=== PATIENT | female | born 1940 | race Caucasian/White ===

== ENCOUNTER 2017-02-13 07:56 | Inpatient (IN) | payer OTHER ==
[2017-01-17 12:34] VITALS: BMI 28.0
--- NOTE | 2017-01-17 12:58 | PAT Medication Instructions ---
Service Date Jan 17, 2017. Current Home Medication List Adalimumab (Humira), 1 DOSE INJ 2XWK Atorvastatin (Lipitor), 40 MG PO QPM Calcium/Vitamin D (Os-Perez 500 Plus D), 1 TAB PO QAM Chlorthalidone (Hygroton), 25 MG PO QAM Cholecalciferol (Vitamin D), 1 TAB PO QAM Coenzyme Q10 (Ubidecarenone) (Co Q10), 1 CAP PO QAM Cyanocobalamin (Vitamin B12 100 Mcg), 100 MCG PO QAM Dicyclomine Hcl (Dicyclomine Hcl), 1 TAB PO TIDM Diphenhydramine Hcl (Benadryl Allergy), 1 CAP PO UD PRN for ALLERGIC REACTION Duloxetine Hcl (Cymbalta), 60 MG PO HS Epinephrine (Epipen), 0.3 MG IM UD Epinephrine (Epipen), 0.3 MG IM UD PRN for ALLERGIC REACTION Famotidine (Pepcid), 40 MG PO HS Folic Acid (Folvite), 1 MG PO QAM Hydroxychloroquine Sulfate (Plaquenil), 200 MG PO BID Krill Oil ([facility] [place]-3 Krill Oil 300 300 mg), 1 CAP PO QAM Loratadine (Loratadine), 1 CAP PO QAM Metformin Hcl (Glucophage), 500 MG PO QAM Multivitamin (Multivitamin), 1 TAB PO QAM Pantoprazole (Protonix), 40 MG PO BID Sennosides-Docusate Sodium (Stool Softener), 1 TAB PO DAILY PRN for Constipation Tramadol (Ultram), 50 MG PO Q8H PRN for Pain Valsartan (Diovan), 80 MG PO QAM [Allergy Injection], 1 DOSE INJ UD Medication Instructions For Your Scheduled Surgery - Check with surgeon/prescribing physician for instructions: [Allergy Injection], 1 DOSE INJ UD Adalimumab (Humira), 1 DOSE INJ 2XWK Hydroxychloroquine Sulfate (Plaquenil), 200 MG PO BID - Hold the following medications 2 weeks prior to surgery: Krill Oil ([facility] [place]-3 Krill Oil 300 300 mg), 1 CAP PO QAM Coenzyme Q10 (Ubidecarenone) (Co Q10), 1 CAP PO QAM - Hold the following medications 48 hours prior to surgery: Metformin Hcl (Glucophage), 500 MG PO QAM - Hold the following medications the morning of surgery: Valsartan (Diovan), 80 MG PO QAM Sennosides-Docusate Sodium (Stool Softener), 1 TAB PO DAILY PRN for Constipation Multivitamin (Multivitamin), 1 TAB PO QAM Loratadine (Loratadine), 1 CAP PO QAM Folic Acid (Folvite), 1 MG PO QAM Dicyclomine Hcl (Dicyclomine Hcl), 1 TAB PO TIDM Cyanocobalamin (Vitamin B12 100 Mcg), 100 MCG PO QAM Calcium/Vitamin D (Os-Perez 500 Plus D), 1 TAB PO QAM Chlorthalidone (Hygroton), 25 MG PO QAM Cholecalciferol (Vitamin D), 1 TAB PO QAM - Take the following medications the morning of surgery with a sip of water: Tramadol (Ultram), 50 MG PO Q8H PRN for Pain (okay to take up to 4 hours prior to surgery if needed) Pantoprazole (Protonix), 40 MG PO BID Epinephrine (Epipen), 0.3 MG IM UD PRN for ALLERGIC REACTION (if needed) Diphenhydramine Hcl (Benadryl Allergy), 1 CAP PO UD PRN for ALLERGIC REACTION ( if needed) - Take the following medications as scheduled the night before surgery: Tramadol (Ultram), 50 MG PO Q8H PRN for Pain (if needed) Pantoprazole (Protonix), 40 MG PO BID Epinephrine (Epipen), 0.3 MG IM UD PRN for ALLERGIC REACTION (if needed) Famotidine (Pepcid), 40 MG PO HS Dicyclomine Hcl (Dicyclomine Hcl), 1 TAB PO TIDM Diphenhydramine Hcl (Benadryl Allergy), 1 CAP PO UD PRN for ALLERGIC REACTION ( if needed) Duloxetine Hcl (Cymbalta), 60 MG PO HS Atorvastatin (Lipitor), 40 MG PO QPM If you have any questions please call us at [phone] or [phone] or [phone]
--- NOTE | 2017-01-17 13:58 | DIAGNOSTIC IMAGING REPORT ---
CHEST PREADMISSION(PA/LAT) CLINICAL HISTORY: Preoperative evaluation. COMPARISON STUDY: No previous studies for comparison. FINDINGS: Lung volumes are normal. Lungs are clear. No pneumothorax or pleural effusion is present. Pulmonary vascularity is normal. Mild to moderate cardiomegaly is noted. Right upper quadrant surgical clips are present. IMPRESSION: 1. No acute cardiopulmonary findings. 2. Mild to moderate cardiomegaly. Electronically signed by: Garfield Jessica M.D. 01/17/2017 1:57 PM Dictated Date/Time: 01/17/2017 1:56 PM
[2017-01-17 14:16] LABS: BASO % 0.5 %; BASO ABS # 0.05 K/uL (0-0.2); COMPLETE YES; EOS % 0.5 %; HEMATOCRIT 42.6 % (37-47); IG% 0.2 %; LYMPH % 26.4 %; LYMPH ABS # 2.57 K/uL (1.2-3.4); MEAN CELL VOLUME 86.2 fL (80-100); MEAN CORPUSCULAR HEMOGLOBIN 28.7 pg (25-34); MEAN CORPUSCULAR HGB CONC 33.3 g/dl (32-36); MEAN PLATELET VOLUME 9.9 fL (7.4-10.4); MONO % 6.3 %; NEUT % 66.1 %; PLATELET COUNT 241 K/uL (130-400); RED BLOOD COUNT 4.94 M/uL (4.2-5.4); WHITE BLOOD COUNT 9.73 K/uL (4.8-10.8)
[2017-01-17 14:21] LABS: URINE APPEARANCE CLEAR (CLEAR); URINE BILIRUBIN NEG (NEG); URINE COLOR YELLOW; URINE EPITHELIAL CELL AUTO 0-5 /lpf (0-5); URINE NITRITE NEG (NEG); URINE SPECIFIC GRAVITY 1.022 (1.000-1.030); UROBILINOGEN NEG (NEG)
[2017-01-17 14:28] LABS: MANUAL MICROSCOPIC REQUIRED? NO; REVIEW REQ? NO
[2017-01-17 14:31] LABS: INR 0.9 (0.9-1.1); PARTIAL THROMBOPLASTIN RATIO 0.9
[2017-01-17 15:10] LABS: BUN/CREATININE RATIO 16.6 (10-20); CALCIUM 9.8 mg/dl (8.5-10.1); CREATININE 0.91 mg/dl (0.60-1.20); POTASSIUM 3.9 mmol/L (3.5-5.1)
[~2017-02-13] VITALS: Ht 165.1 cm; Wt 77.0 kg
[2017-02-13] VITALS (8 sets, daily range): BP systolic 113–195; BP diastolic 61–80; PULSE 78–87; TEMP 36.6–37.1; O2SAT 93–98
[~2017-02-13 07:56] MED LIST: ADAL1KIT INJ; ALLERGY INJECTION INJ; ATOR-24 PO; CALC500C70 PO; CEFAZOLIN 1000MG/55 ML D5W IV SCH; CHOL400T PO; COEN1CAP28 PO; CYAN100T6 PO; DICY20TA10 PO; DIPH25CA65 PO; DULO60CA44 PO; DVN80 PO; EPP3/2 IM; FAMO40TA6 PO; FOLI1TAB7 PO; GLC/500 PO; HYDR200T5 PO; HYG/25 PO; KRIL1CAP20 PO; LACTATED RINGER'S 1000ML 1,000 ML IV SCH; LORA10CA10 PO; MULT-506 PO; PANT40TA PO; SENNTAB23 PO; TRAM-10 PO
[2017-02-13] MEDS ORDERED: ONDANSETRON INJ 2 MG/ML 2 ML VIAL IV PRN ×2 (08:15→12:15)
[2017-02-13] MEDS ORDERED: HYDROmorphone INJ 1 MG/ML SYR IV PRN (08:15)
[2017-02-13] MEDS ORDERED: EpHEDrine SULFATE INJ 50 MG/ML AMP IV PRN (08:15)
[2017-02-13] MEDS ORDERED: ATROPINE SULFATE 0.1 MG/ML 5ML SYR IV PRN (08:15)
[2017-02-13] MEDS ORDERED: FENTANYL CITRATE INJ 50 MCG/1 ML 2 ML VIAL ONE ×2 (09:40→10:53)
[2017-02-13] MEDS ORDERED: MIDAZOLAM HCL 1 MG/ML 2ML VIAL ONE (09:40)
--- NOTE | 2017-02-13 09:45 | History & Physical Bridge Note ---
H&P Re-Evaluation Bridge Note: I have examined the patient, reviewed the History & Physical and in the interval since the performance of the History & Physical I have noted the following changes of clinical significance: No changes noted
--- NOTE | 2017-02-13 09:46 | History and Physical ---
History & Physical Date Feb 13, 2017. Chief Complaint Back and leg pain History of Present Illness The patient is a 76 year old female with complaints of back and leg pain Additional History Hepatic Disease: No Endocrine Disorder: No Kidney Disease: No Hypertension: No Heart Disease: No Bleeding Tendencies: No Infectious Diseases: No Allergies Coded Allergies: Benzyl Alcohol (Verified Allergy, Unknown, ANAPHYLAXIS, 02/13/17) Bisoprolol (Verified Allergy, Unknown, COUGH, 02/13/17) Cat Dander (Verified Allergy, Unknown, ANAPHYLAXIS, 02/13/17) Cephalexin (Verified Allergy, Unknown, PT UNSURE OF RXN, 02/13/17) Codfish (Verified Allergy, Unknown, TESTED POSITIVE FOR ALLERGY, 02/13/17) Elm Tree (Verified Allergy, Unknown, "ALL TREE", HAYFEVER, 02/13/17) Etanercept (Verified Allergy, Unknown, ANAPHYLAXIS, 02/13/17) Grass (Verified Allergy, Unknown, HAYFEVER, 02/13/17) Lisinopril (Verified Allergy, Unknown, COUGH, 02/13/17) Molds and Smuts (Verified Allergy, Unknown, HAY FEVER, 02/13/17) Niacin (Verified Allergy, Unknown, HOT FLASHES, 02/13/17) Tromethamine (Verified Allergy, Unknown, ANAPHYLAXIS, 02/13/17) Zoledronic Acid (Verified Allergy, Unknown, ANAPHYLAXIS, 02/13/17) Uncoded Allergies: TURKEY (Allergy, Unknown, PT DOES NOT TOLERATE, 01/17/17) Home Medications Scheduled Adalimumab (Humira), 1 DOSE INJ 2XWK Atorvastatin (Lipitor), 40 MG PO QPM Calcium/Vitamin D (Os-Perez 500 Plus D), 1 TAB PO QAM Chlorthalidone (Hygroton), 25 MG PO QAM Cholecalciferol (Vitamin D), 1 TAB PO QAM Coenzyme Q10 (Ubidecarenone) (Co Q10), 1 CAP PO QAM Cyanocobalamin (Vitamin B12 100 Mcg), 100 MCG PO QAM Dicyclomine Hcl (Dicyclomine Hcl), 1 TAB PO TIDM Duloxetine Hcl (Cymbalta), 60 MG PO HS Epinephrine (Epipen), 0.3 MG IM UD Famotidine (Pepcid), 40 MG PO HS Folic Acid (Folvite), 1 MG PO QAM Hydroxychloroquine Sulfate (Plaquenil), 200 MG PO BID Krill Oil ([facility] [place]-3 Krill Oil 300 300 mg), 1 CAP PO QAM Loratadine (Loratadine), 1 CAP PO QAM Metformin Hcl (Glucophage), 500 MG PO QAM Multivitamin (Multivitamin), 1 TAB PO QAM Pantoprazole (Protonix), 40 MG PO BID Valsartan (Diovan), 80 MG PO QAM [Allergy Injection], 1 DOSE INJ UD Scheduled PRN Diphenhydramine Hcl (Benadryl Allergy), 1 CAP PO UD PRN for ALLERGIC REACTION Sennosides-Docusate Sodium (Stool Softener), 1 TAB PO DAILY PRN for Constipation Tramadol (Ultram), 50 MG PO Q8H PRN for Pain Physical Examination Skin: warm/dry, no rash Eyes: normal inspection, EOMI, sclerae normal ENT: normal ENT inspection, pharynx normal Head: normocephalic, atraumatic Neck: supple, no adenopathy, trachea midline Respiratory/Chest: lungs clear, normal breath sounds, no respiratory distress Cardiovascular: regular rate, rhythm, no edema, no murmur Abdomen / GI: normal bowel sounds, non tender Back: normal inspection Extremities: normal inspection, normal range of motion Neurologic/Psych: no motor/sensory deficits, alert, normal reflexes, oriented x 3 Diagnosis Lumbar spinal stenosis with spondylolisthesis Plan of Treatment Lumbar decompression fusion L4 5
[2017-02-13] MEDS ORDERED: BUPIVACAINE/EPINEPHRINE 0.5% MPF 1:200,000 30 ML VIAL ONE (10:10)
[2017-02-13] MEDS ORDERED: BACITRACIN 50000 UNIT VIAL ONE (10:10)
[2017-02-13] MEDS ORDERED: CLINDAMYCIN 600 MG/54 ML D5W IV ONE (10:27)
[2017-02-13] MEDS ORDERED: NURSING VERBAL MED ORDER ONE ×2 (10:45→20:45)
[2017-02-13] MEDS ORDERED: HYDROmorphone INJ 2 MG/ML SYR/VIAL ONE ×2 (10:53→12:09)
[2017-02-13] MEDS ORDERED: FLOSEAL HEMOSTATIC MATRIX 10ML TOP ONE (11:59)
[2017-02-13] MEDS ORDERED: PHENYLEPHRINE 100MCG/ML 5ML SYR ONE (12:07)
[2017-02-13] MEDS ORDERED: ONDANSETRON INJ 2 MG/ML 2 ML VIAL ONE ×2 (12:07→12:09)
[2017-02-13] MEDS ORDERED: EpHEDrine SULFATE 50MG/5ML SYR ONE (12:07)
[2017-02-13] MEDS ORDERED: LIDOCAINE HCL 2% 2 ML VIAL (20MG/ML) ONE (12:07)
[2017-02-13] MEDS ORDERED: ROCURONIUM BROMIDE 10 MG/ML 5 ML VIAL IV ONE (12:07)
[2017-02-13] MEDS ORDERED: PROPOFOL IV EMULSION 10 MG/ML 20 ML VIAL IV ONE (12:07)
[2017-02-13] MEDS ORDERED: DEXAMETHASONE SOD INJ 4 MG/ML VIAL ONE (12:07)
[2017-02-13] MEDS ORDERED: NEOSTIGMINE METHYLSULFATE 1 MG/ML 10ML VIAL ONE (12:09)
[2017-02-13] MEDS ORDERED: KETOROLAC TROMETHAMINE 30 MG/ML VIAL ONE (12:09)
[2017-02-13] MEDS ORDERED: GLYCOPYRROLATE INJ 0.2 MG/ML VIAL ONE (12:09)
--- NOTE | 2017-02-13 12:14 | DIAGNOSTIC IMAGING REPORT ---
LUMBAR SPINE, INTRAOPERATIVE FLUOROSCOPY HISTORY: L4-L5 decompression and fusion. FLUOROSCOPY TIME: 12 seconds. FINDINGS: Intraoperative fluoroscopy was provided for the lumbar spine. 2 fluoroscopic spot images were obtained. Posterior decompression fusion at L4-L5 with pedicle screws and rods. The hardware appears intact. IMPRESSION: Fluoroscopy provided for a L4-5 posterior decompression and fusion. Electronically signed by: Luis A Guerra M.D. 02/13/2017 12:13 PM Dictated Date/Time: 02/13/2017 12:12 PM
[2017-02-13] MEDS ORDERED: hydrOXYzine HCL 25 MG TAB PO PRN (12:15)
[2017-02-13] MEDS ORDERED: SODIUM CHLORIDE 0.9% 1000ML 1,000 ML IV SCH (12:15)
[2017-02-13] MEDS ORDERED: HYDROmorphone HCL 0.5MG/ML 50 ML CASSETTE IV PRN (12:15)
[2017-02-13] MEDS ORDERED: ALUMINUM/MAGNESIUM SUSP 30 ML UDC PO PRN (12:15)
[2017-02-13] MEDS ORDERED: SOD PHOSPHATE/SOD BIPHOSPHATE ENEMA 132 ML BTL PR PRN (12:15)
[2017-02-13] MEDS ORDERED: BISACODYL 10 MG SUPP PR PRN (12:15)
[2017-02-13] MEDS ORDERED: LORAZEPAM INJ 0.5 MG in SYRINGE 0.75 ML IV PRN (12:15)
[2017-02-13] MEDS ORDERED: NALOXONE HCL 0.4 MG/1 ML VIAL/CARP IV PRN ×2 (12:15)
[2017-02-13] MEDS ORDERED: LORAZEPAM 0.5 MG TAB PO PRN (12:15)
[2017-02-13] MEDS ORDERED: PROMETHAZINE HCL INJ 12.5 MG in SODIUM CHLORIDE 0.9% 50ML 50 ML IV PRN (12:15)
[2017-02-13] MEDS ORDERED: ACETAMINOPHEN IV 100 ML IV PRN (12:15)
[2017-02-13] MEDS ORDERED: FAMOTIDINE 20 MG TAB PO PRN (12:15)
[2017-02-13] MEDS ORDERED: METOCLOPRAMIDE HCL INJ 5 MG/ML 2 ML VIAL IV PRN (12:15)
[2017-02-13] MEDS ORDERED: MAGNESIUM HYDROXIDE SUSP 30 ML UDC PO PRN (12:15)
[2017-02-13] MEDS ORDERED: DO NOT ADMINISTER PNEUMOCOCCAL VACCINE PRN ×2 (12:15)
[2017-02-13] MEDS ORDERED: DO NOT ADMINISTER FLU VACCINE PRN ×3 (12:15)
[2017-02-13] MEDS: FENTANYL CITRATE INJ 50 MCG/1 ML 2 ML VIAL IV PRN ×4 (12:32→12:47)
--- NOTE | 2017-02-13 12:35 | [facility] Operative Report ---
Operative Report Operative Date Feb 13, 2017. Pre-Operative Diagnosis SPINAL STENOSIS Post-Operative Diagnosis SAME PREOP Procedure(s) Performed #1 lumbar decompression medial facetectomy foraminotomies L3 4 L4 5. #2 posterior spinal fusion L4 5. #3 placement posterior inch rotation L4 5. #4 interbody fusion L4 5. #5 placement peek cage 12 x 22 mm at L4 5. #6 placement of local harvested morcellized autograft posterior lateral gutters. #7 placement of ostial amp in the interbody space and posterior lateral gutters. Surgeon DR. Ruben SMITH Narrow Gauge Brakeman Surgeon(s) Levon BUSCH PAC Estimated Blood Loss 125ml Findings Severe spinal stenosis with spondylolisthesis Specimens NONE Description of Procedure Patient was met with preoperatively case discussed all questions are dressed. After informed consent the patient patient was taken back to the operative suite after undergoing general intubation E procedures placed in a prone position on the Harrison table top Emanuel frame. All bony prominences were well- padded and the eyes were inspected to ensure there is no external pressure placed upon them. This point the lumbar spine is prepped and draped nostril fashion. Sharp dissection with the assistance of Bovie cautery was performed onto an exposing the lamina and transverse processes of L4 5 bilaterally. From a caudal to cephalad fashion a complete laminectomy of L4 partial laminectomy of L3 was performed addressing severe lateral recess and foraminal stenosis. After this is complete pedicle screws were placed in L4 5 bilaterally assistance of fluoroscopy in the purposes kodi placed. Through a transforaminal approach on the left we discectomy of L4 5 was performed and plate created to subcortical bleeding bone and a 12 x 22 mm peek cage filled with ostial amp tapped in position. The rods were then compressed locked and final position bilaterally. Transverse processes of L4 5 burred to subcortical bleeding bone. The remaining ostial amp local harvested autograft placed and posterior gutters. 15 round SAUL drain inserted. Incision closed with 1 Vicryl fascia 2-0 Vicryl subcutaneous tediously 4 Monocryl for final skin closure Steri-Strip sterile dressing placed. Patient we can take PACU stable condition. Please note Naomi Jack was present throughout the entire procedure involved in patient positioning complex portions of the surgery and final skin closure. I attest to the content of the Intraoperative Record and any orders documented therein. Any exceptions are noted below.
[2017-02-13] MEDS ORDERED: HYDROmorphone HCL 0.5MG/ML 50 ML CASSETTE ONE (12:56)
--- NOTE | 2017-02-13 13:01 | Anesthesiology Progress Note ---
Anesthesia Post Op Note Date & Time Feb 13, 2017 at 13:01 Vital Signs Pain Intensity: 3 Vital Signs Past 12 Hours Date Time Temp Pulse Resp B/P (MAP) Pulse Ox O2 Delivery O2 Flow Rate FiO2 02/13/17 12:20 36.4 95 16 185/112 96 Oxymask 10 02/13/17 09:05 37.1 79 20 195/80 96 Room Air Notes Mental Status: alert / awake / arousable, participated in evaluation Pt Amnestic to Procedure: Yes Nausea / Vomiting: adequately controlled Pain: adequately controlled Airway Patency, RR, SpO2: stable & adequate BP & HR: stable & adequate Hydration State: stable & adequate Anesthetic Complications: no major complications apparent
[2017-02-13] MEDS ORDERED: ESMOLOL HCL 10 MG/ML 10 ML VIAL ONE (13:04)
[2017-02-13] MEDS ORDERED: PHARMACY GLYCEMIC MGMT CONSULT PRN (13:48)
[2017-02-13] MEDS ORDERED: DEXTROSE 50% 50 ML SYR IV PRN (14:00)
[2017-02-13] MEDS ORDERED: GLUCAGON FOR INJ 1 MG VIAL SQ PRN (14:00)
[2017-02-13] MEDS ORDERED: GLUCOSE 10 TABS/TUBE PO PRN (14:00)
[2017-02-13] MEDS ORDERED: GLUCOSE 40% GEL 15 GM TUBE PO PRN (14:00)
[2017-02-13] MEDS: SODIUM CHLORIDE 0.9% 1000ML 1,000 ML IV SCH ×2 (14:20→19:23)
--- NOTE | 2017-02-13 14:31 | Pharmacy Progress Note ---
Glycemic Control Intl Consult Date of Service Feb 13, 2017. Scope Glycemic Pharmacist consulted by Dr Sauer on 02/13/17 for glycemic control and to write orders per [facility] inpatient glycemic control protocol Objective Weight (Kilograms): 77.400 Accuchecks BSG (last 24hrs): Test 02/13/17 08:42 02/13/17 12:27 Bedside Glucose 99 mg/dl (70-90) 140 mg/dl (70-90) Recent Pertinent Medications Outpatient Anti-diabetic Regimen: * Metformin 500mg PO QAM {last dose 02/10} Risk Factors for Insulin Resistance: * Steroids * Recent Surgery * Diet Assessment & Plan ASSESSMENT: * 76yo T2DM female with unknown degree of outpatient control. * No recent A1c in chart * Pt is maintained on oral antidiabetic agents as an outpatient * Oral agents are not recommended for inpatient use d/t drug interactions, changing PO intake, and difficulty titrating for acute hyper/hypoglycemia. ADA recommends re-initiating outpatient oral agents 1-2 days prior to discharge if/ when appropriate if they were held on admission. * Will hold oral agents for admission and utilize SQ basal bolus insulin regimen which is the recommended regimen for inpatient glycemic control. * Will initiate weight based insulin dosing for insulin berta patient and titrate based on BSG trends. * POD#0: Start with severe stress & weight based dosing for post op and high dose IV steroids * POD#1: taper to moderate stress & weight based dosing * POD#2: d/c insulin, resume metformin, prep for discharge * ADA & AACE recommend a goal blood sugar range 140-180 mg/dl for the majority of critically ill & non-critically ill patients. However, more stringent targets may be selected in individual cases. Will utilize more stringent goal of 110-140mg/dl based on patient age & comorbidities. Additionally, tighter glycemic control is warranted to facilitate wound/infection healing. PLAN FOR INPATIENT GLYCEMIC CONTROL: * Holding outpatient oral diabetes medications * Basal insulin * POD# 0: Lantus 40 units SQ x 1 * POD# 1 AM: Lantus 0, 7, or 13 units in AM based on BSG/degree of hyperglycemia * POD# 1 HS: Lantus 0, 7 units based on BSG/degree of hyperglycemia * POD# 2 AM: D/C Lantus * Bolus insulin * NovoLog per scale ACHS or Q6hrs while NPO. Additional checks/coverage tonight at 0000, 0400 for RTC steroid dosing/hyperglycemia * Goal Range: Low 110 mg/dL - High 140 mg/dL * Correction Factor: 20 mg/dL/unit --> will taper to 30 after last dose of dxm * Nutritional / Prandial insulin per carb ratio of 1 unit per 7 grams CHO consumed --> will taper to 10 after last dose of dxm & d/c when metformin resumed * Please note that the plan above was derived based on current level of insulin resistance and hospital stress. These recommendations are appropriate for inpatient admission only. Plan of care upon discharge will need to be reassessed to avoid potential outpatient hypo/hyperglycemia. Thank you.
--- NOTE | 2017-02-13 15:04 | Medical Consult ---
Consultation Date of Consultation: Feb 13, 2017. Attending Physician: Glenn Sauer D.O. Reason for Consultation: medical management History of Present Illness 76 year old F with PMH of food and drug allergies and the following: Osteoarthritis Psoriatic arthritis Rectocele Fibromyalgia Irritable bowel syndrome Overactive bladder Osteoporosis GERD Hyperlipidemia Essential HTN Allergic Rhinitis Shingles (September 2016) Pre-diabetic Home medications reviewed and significant for blood pressure control (Valsartan , Chlorthalidone 12.5 mg daily), cholesterol (lipitor 40 mg), pre-diabetes ( metformin), psoriatic arthritis (humira 40 mg bi weekly injections, ( hydroxychloroquine), medications for allergies for appetite and vitamins s/p #1 lumbar decompression medial facetectomy foraminotomies L3 4 L4 5. #2 posterior spinal fusion L4 5. #3 placement posterior inch rotation L4 5. #4 interbody fusion L4 5. #5 placement peek cage 12 x 22 mm at L4 5. #6 placement of local harvested morcellized autograft posterior lateral gutters. # 7 placement of ostial amp in the interbody space and posterior lateral gutters. Social History Smoking Status: Never Smoker Allergies Coded Allergies: Benzyl Alcohol (Verified Allergy, Unknown, ANAPHYLAXIS, 02/13/17) Bisoprolol (Verified Allergy, Unknown, COUGH, 02/13/17) Cat Dander (Verified Allergy, Unknown, ANAPHYLAXIS, 02/13/17) Cephalexin (Verified Allergy, Unknown, PT UNSURE OF RXN, 02/13/17) Codfish (Verified Allergy, Unknown, TESTED POSITIVE FOR ALLERGY, 02/13/17) Elm Tree (Verified Allergy, Unknown, "ALL TREE", HAYFEVER, 02/13/17) Etanercept (Verified Allergy, Unknown, ANAPHYLAXIS, 02/13/17) Grass (Verified Allergy, Unknown, HAYFEVER, 02/13/17) Lisinopril (Verified Allergy, Unknown, COUGH, 02/13/17) Molds and Smuts (Verified Allergy, Unknown, HAY FEVER, 02/13/17) Niacin (Verified Allergy, Unknown, HOT FLASHES, 02/13/17) Tromethamine (Verified Allergy, Unknown, ANAPHYLAXIS, 02/13/17) Zoledronic Acid (Verified Allergy, Unknown, ANAPHYLAXIS, 02/13/17) Uncoded Allergies: TURKEY (Allergy, Unknown, PT DOES NOT TOLERATE, 01/17/17) Home Medications Reported Home Medications Medications Dose Route/Sig Max Daily Dose Days Date Category [facility]-3 Krill Oil 300 300 mg (Krill Oil) 1 Cap Cap 1 Cap PO QAM 01/17/17 Reported Os-Perez 500 Plus D (Calcium/Vitamin D) Tab 1 Tab PO QAM 01/17/17 Reported Vitamin D (Cholecalciferol) 400 Unit Tab 1 Tab PO QAM 01/17/17 Reported Co Q10 (Coenzyme Q10) 50 Mg Cap 1 Cap PO QAM 01/17/17 Reported Vitamin B12 100 Mcg (Cyanocobalamin) 100 Mcg Tab 100 Mcg PO QAM 01/17/17 Reported Folvite (Folic Acid) 1 Mg Tab 1 Mg PO QAM 01/17/17 Reported Multivitamin (Multivitamins) Tab 1 Tab PO QAM 01/17/17 Reported Stool Softener (Sennosides-Docusate Sodium) 1 Tab Tab 1 Tab PO DAILY PRN 01/17/17 Reported [Allergy Injection] 1 Dose INJ UD 01/17/17 Reported Epipen (Epinephrine) 0.3 Mg/0.3 Ml Inj 0.3 Mg IM UD 01/17/17 Reported Benadryl Allergy (Diphenhydramine Hcl) 25 Mg Cap 1 Cap PO UD PRN 30 01/17/17 Reported Loratadine 10 Mg Cap 1 Cap PO QAM 01/17/17 Reported Plaquenil (Hydroxychloroquine Sulfate) 200 Mg Tab 200 Mg PO BID 01/17/17 Reported Ultram (Tramadol HCl) 50 Mg Tab 50 Mg PO Q8H PRN 01/17/17 Reported Humira (Adalimumab) 40 Mg/0.8 Ml Kit 1 Dose INJ 2XWK 01/17/17 Reported Dicyclomine Hcl 20 Mg Tab 1 Tab PO TIDM 30 01/17/17 Reported Pepcid (Famotidine) 40 Mg Tab 40 Mg PO HS 01/17/17 Reported Protonix (Pantoprazole Sodium) 40 Mg Tab 40 Mg PO BID 01/17/17 Reported Glucophage (Metformin Hcl) 500 Mg Tab 500 Mg PO QAM 01/17/17 Reported Lipitor (Atorvastatin Calcium) 40 Mg Tab 40 Mg PO QPM 01/17/17 Reported Hygroton (Chlorthalidone) 25 Mg Tab 25 Mg PO QAM 01/17/17 Reported Cymbalta (Duloxetine Hcl) 60 Mg Cap 60 Mg PO HS 01/17/17 Reported Diovan (Valsartan) 80 Mg Tab 80 Mg PO QAM 01/17/17 Reported Current Inpatient Medications Current Inpatient Medications Medications (Trade) Dose Ordered Sig/Praveen Route Start Time Stop Time Status Last Admin Dose Admin Lactated Ringer's 1,000 ml @ 15 mls/hr Q24H IV 02/13/17 06:00 02/14/17 05:59 02/13/17 09:31 15 MLS/HR Clindamycin Phosphate 600 mg/ Dextrose 54 ml @ 100 mls/hr Q8H IV 02/13/17 18:00 02/14/17 02:33 Dexamethasone Sodium Phosphate 6 mg/Syringe 1.5 ml @ 1 mls/min Q8H IV 02/13/17 18:00 02/14/17 10:02 Promethazine HCl 12.5 mg/Sodium Chloride 50.5 ml @ 202 mls/hr Q6H PRN IV 02/13/17 12:15 03/15/17 12:14 Ondansetron HCl (Zofran Inj) 4 mg Q6H PRN IV 02/13/17 12:15 03/15/17 12:14 Metoclopramide HCl (Reglan Inj) 10 mg Q6H PRN IV 02/13/17 12:15 03/15/17 12:14 Lorazepam (Ativan Tab) 0.5 mg Q8H PRN PO 02/13/17 12:15 03/15/17 12:14 Lorazepam 0.5 mg/ Syringe 1 ml @ 1 mls/min Q8H PRN IV 02/13/17 12:15 03/15/17 12:14 Pneumococcal Polysaccharide Vaccine 1 ea PRN PRN N/A 02/13/17 12:15 03/15/17 12:14 Influenza Virus Vacc Triv Types A&B 1 ea PRN PRN N/A 02/13/17 12:15 03/15/17 12:14 Polyethylene (Miralax Powder Packet) 17 gm Q6 PO 02/15/17 06:00 03/17/17 05:59 Bisacodyl (Dulcolax Supp) 10 mg DAILY PRN W[place] 02/13/17 12:15 03/15/17 12:14 Magnesium Hydroxide (Milk Of Magnesia Susp) 30 ml DAILY PRN PO 02/13/17 12:15 03/15/17 12:14 Hydromorphone HCl (Dilaudid Inj) 0.5 mg Q3H PRN IV 02/14/17 06:00 02/28/17 05:59 Oxycodone HCl (Roxicodone Immediate Rel Tab) 5-10mg prn moderate to sev... Q4H PRN PO 02/14/17 06:00 02/28/17 05:59 Sodium Chloride 1,000 ml @ 150 mls/hr Q6H40M IV 02/13/17 12:15 03/15/17 12:14 02/13/17 14:20 150 MLS/HR Acetaminophen (Tylenol Tab) 1,000 mg Q8H PRN PO 02/13/17 12:15 03/15/17 12:14 Acetaminophen 100 ml @ 400 mls/hr Q8H PRN IV 02/13/17 12:15 03/15/17 12:14 Naloxone HCl (Narcan Inj) 0.1 mg Q5M PRN IV 02/13/17 12:15 03/15/17 12:14 Senna/Docusate Sodium (Senokot S Tab) 2 tab HS PO 02/13/17 21:00 03/15/17 20:59 Sodium Biphosphate/ Sodium Phosphate (Fleet Enema) 132 ml ONE PRN W[place] 02/13/17 12:15 03/15/17 12:14 Hydroxyzine HCl (Vistaril Tab) 25 mg Q8H PRN PO 02/13/17 12:15 03/15/17 12:14 Al Hydroxide/Mg Hydroxide (Maalox Susp) 30 ml Q6H PRN PO 02/13/17 12:15 03/15/17 12:14 Diphenhydramine HCl (Benadryl Cap) 25 mg Q6H PRN PO 02/13/17 12:15 03/15/17 12:14 Miscellaneous Information (Discontinue [employer]) 1 ea TODAY@0600 N/A 02/14/17 06:00 02/14/17 06:01 Naloxone HCl (Narcan Inj) 0.1 mg Q5M PRN IV 02/13/17 12:15 02/14/17 06:00 Hydromorphone HCl (Dilaudid Concrete Plant [employer]) 25 mg PRN PRN IV 02/13/17 12:15 02/14/17 06:00 Sodium Chloride 1,000 ml @ 15 mls/hr Q24H IV 02/13/17 12:15 02/14/17 06:00 Atorvastatin Calcium (Lipitor Tab) 40 mg QPM PO 02/13/17 21:00 03/15/17 20:59 Chlorthalidone (Hygroton Tab) 25 mg QAM PO 02/14/17 09:00 03/16/17 08:59 Dicyclomine HCl (Bentyl Tab) 20 mg TIDM PO 02/13/17 17:45 03/15/17 17:59 Duloxetine HCl (Cymbalta Cap) 60 mg HS PO 02/13/17 21:00 03/15/17 20:59 Famotidine (Pepcid Tab) 40 mg HS PO 02/13/17 21:00 03/15/17 20:59 Pantoprazole Sodium (Protonix Tab) 40 mg BID PO 02/13/17 21:00 03/15/17 20:59 Tramadol HCl (Ultram Tab) 50 mg Q8H PRN PO 02/13/17 12:15 03/15/17 12:14 Valsartan (Diovan Tab) 80 mg QAM PO 02/14/17 09:00 03/16/17 08:59 Miscellaneous Information (Consult Glycemic Management Pharmacy) 1 ea UD PRN N/A 02/13/17 13:48 03/15/17 13:47 Insulin Glargine (Lantus Solostar Pen) SEE PROTOCOL TEXT Q12 SC 02/14/17 09:00 03/16/17 08:59 Insulin Aspart (novoLOG ASPART) SLIDING SCALE If C... ACHS SC 02/13/17 17:15 03/15/17 17:14 Glucose (Glucose 40% Gel) 15-30 GRAMS 15 GRAMS... UD PRN PO 02/13/17 14:00 03/15/17 13:59 Glucose (Glucose Chew Tab) 4-8 Tablets 4 Tabl... UD PRN PO 02/13/17 14:00 03/15/17 13:59 Dextrose (Dextrose 50% 50ML Syringe) 25-50ML OF 50% DW IV FOR... UD PRN IV 02/13/17 14:00 03/15/17 13:59 Glucagon (Glucagon Inj) 1 mg UD PRN SQ 02/13/17 14:00 03/15/17 13:59 Insulin Glargine (Lantus Solostar Pen) 40 units NOW ONCE SC 02/13/17 16:00 02/13/17 16:01 Hydromorphone HCl (Dilaudid Inj) 1 mg Q3H PRN IV 02/14/17 06:00 02/28/17 05:59 Insulin Aspart (novoLOG ASPART) SLIDING SCALE If C... TODAY@0000,0400 SC 02/14/17 00:00 02/14/17 04:01 Review of Systems Constitutional: No fever, No chills, No sweats, No weakness, No fatigue Eyes: No worsening of vision, No eye pain ENT: No hearing loss, No nasal symptoms, No sore throat, No trouble swallowing Respiratory: No cough, No sputum, No shortness of breath, No dyspnea on exertion, No dyspnea at rest, No hemoptysis Cardiovascular: No chest pain, No palpitations Abdomen: No pain, No nausea, No vomiting, No diarrhea, No constipation Musculoskeletal: No calf pain Genitourinary - Female: No dysuria Neurologic: No numbness/tingling Psychiatric: No substance abuse Endocrine: No fatigue Hematologic / Lymphatic: No abnormal bleeding/bruising, No clotting problems Integumentary: No rash, No itch Allergic / Immunologic: + environmental allergies, + food allergies Physical Exam Date Time Temp Pulse Resp B/P (MAP) Pulse Ox O2 Delivery O2 Flow Rate FiO2 02/13/17 14:43 82 16 143/78 (99) 97 Nasal Cannula 2.0 02/13/17 14:14 36.7 80 17 130/75 (93) 98 Nasal Cannula 4.0 02/13/17 13:45 36.8 78 16 118/68 (85) 96 Nasal Cannula 4.0 02/13/17 13:45 96 Nasal Cannula 4.0 02/13/17 13:45 96 Nasal Cannula 4.0 02/13/17 13:32 83 12 02/13/17 13:32 81 12 92 02/13/17 13:31 109/53 02/13/17 13:27 79 15 95 02/13/17 13:27 83 15 02/13/17 13:26 114/62 02/13/17 13:22 78 14 02/13/17 13:22 77 14 95 02/13/17 13:21 128/60 02/13/17 13:17 77 18 93 02/13/17 13:17 75 18 02/13/17 13:16 125/66 02/13/17 13:12 72 15 02/13/17 13:12 72 15 92 02/13/17 13:11 122/65 02/13/17 13:07 73 9 02/13/17 13:07 75 9 95 02/13/17 13:06 36.2 02/13/17 13:05 74 16 98 02/13/17 13:05 76 16 02/13/17 13:03 112/63 02/13/17 13:00 75 14 96 02/13/17 13:00 77 14 02/13/17 12:56 147/75 02/13/17 12:55 77 18 02/13/17 12:55 78 18 96 02/13/17 12:51 136/74 02/13/17 12:50 74 21 02/13/17 12:50 75 21 97 02/13/17 12:46 151/68 02/13/17 12:45 72 15 97 02/13/17 12:45 72 15 02/13/17 12:41 136/79 02/13/17 12:40 73 13 95 02/13/17 12:40 77 13 02/13/17 12:36 133/78 02/13/17 12:35 74 15 02/13/17 12:35 77 15 95 02/13/17 12:31 129/75 02/13/17 12:30 79 26 02/13/17 12:30 75 26 95 02/13/17 12:27 133/71 02/13/17 12:25 94 16 94 02/13/17 12:25 95 16 02/13/17 12:24 185/112 02/13/17 12:20 36.4 95 16 185/112 96 Oxymask 10 02/13/17 09:05 37.1 79 20 195/80 96 Room Air General Appearance: no apparent distress Head: normocephalic, atraumatic Eyes: normal inspection, EOMI ENT: normal ENT inspection, hearing grossly normal, pharynx normal Neck: supple, no JVD Respiratory/Chest: chest non-tender, lungs clear, normal breath sounds Cardiovascular: regular rate, rhythm, no JVD Abdomen/GI: normal bowel sounds, non tender, soft Back: + pertinent finding (unable to examine. s/p back surgery with SAUL drain) Extremities/Musculoskelatal: + pertinent finding (in SCD sleeves) Neurologic/Psych: no motor/sensory deficits, alert, oriented x 3 Skin: normal color, warm/dry, no rash Laboratory Results Last 24 Hours Test 02/13/17 08:42 02/13/17 12:27 Bedside Glucose 99 mg/dl 140 mg/dl Assessment & Plan 76 year old F with multiple medical health issues and allergies s/p back surgery Back surgery (s/p #1 lumbar decompression medial facetectomy foraminotomies L3 4 L4 5. #2 posterior spinal fusion L4 5. #3 placement posterior inch rotation L4 5. #4 interbody fusion L4 5. #5 placement peek cage 12 x 22 mm at L4 5. #6 placement of local harvested morcellized autograft posterior lateral gutters. # 7 placement of ostial amp in the interbody space and posterior lateral gutters) trend CBC pain control, naloxone, bowel regimen please order early ambulation as tolerated, physical therapy as tolerated discharge and management as per orthopedics Osteoarthritis/Osteoporosis Fibromyalgia - stable Psoriatic arthritis - do not start humira at this time, hydroxychloroquine is a relatively safe medication but can be restarted after discharge Rectocele / Irritable bowel syndrome - monitor for bowel movements, constipation , or diarrhea, or for blood in stool GERD/Food allergies: monitor, Benadryl if needed Allergic Rhinitis - stable Overactive bladder - stable Hyperlipidemia - continue atorvastatin Essential HTN - continue valsartan, chlorthalidone, monitor creatinine Shingles (September 2016) - stable Pre-diabetic - hold metformin, place on sliding scale insulin, monitor fingertick glucose, can restart metformin after discharge DVT prophylaxis: SCDs Disposition: discharge as per orthopedics
[2017-02-13] MEDS ORDERED: RXC5 PO (15:37)
--- NOTE | 2017-02-13 15:37 | Discharge Instructions ---
Discharge Instructions Date of Service Feb 13, 2017. Admission Reason for Admission: Lumbar Spinal Stenosis Discharge Discharge Diagnosis / Problem: lumbar spinal stenosis Discharge Goals Goal(s): Improve function Activity Recommendations Activity Limitations: per Instructions/Follow-up section . Instructions / Follow-Up Instructions / Follow-Up ACTIVITY RECOMMENDATIONS: SELF CARE INSTRUCTIONS AFTER THORACIC/LUMBAR FUSIONS 1. You may walk to your tolerance. It is good exercise for your legs and back. Expect some back and intermittent leg aches and pains. 2. You may perform "counter-top" level activities (make a sandwich, angie with a project, etc.). 3. No bending or lifting of more than 10 pounds or back twisting of any nature (roll like a log when turning in bed). 4. You may ride in a car for 20-30 minutes at a time. No driving until after your first visit with your doctor. 5. Frequent changes of position and restricting sitting to 30 minutes at a time will help limit the amount of back spasms and stiffness you may experience. 6. You may discontinue the use of ambulatory aids (cane, crutches, etc.) once your strength and confidence allow. 7. You may paper cone machine tender the shower and let water strike your incision when you arrive home at least once daily. Do not take a tub bath, sit in a hot tub or go into a swimming pool until after your first recheck in the office. SPECIAL CARE INSTRUCTIONS: VERY IMPORTANT TO READ AND REVIEW A. Your surgical incision has been closed with a cosmetic suture under the skin that will dissolve in about 6 weeks. In 14 days, you can use a pair of clean scissors and cut the suture that is left outside of the skin at the ends of your incision. 1. The small skin tapes can be removed 7 days after surgery if they have not fallen off by that point. 2. You may keep the wound open to air as much as possible to promote healing after post-op day number 5 unless told otherwise by your doctor. 3. If you think the wound looks like it is becoming infected (redness or worsening drainage) and/or you are experiencing fever, chill or worsening back pain and muscle spasms, contact the office so that we may evaluate you as soon as possible. B. Complications are uncommon, but please contact us if you have any signs or symptoms of: 1. wound infection (fever higher than 102.5 degrees F, redness, separation of wound, drainage, or increasing pain from the incision) 2. blood clots in legs (pain, swelling, redness and warmth in legs) 3. urinary tract infection (fever higher than 102.5 degrees F, burning upon urination or increased frequency of urination) 4. nerve problems (inability to walk on your toes or heels, numbness, loss of bowel or bladder control) 5. any other symptoms that concern you C. Please call the office at if you have any concerns or questions about your operation or recovery. D. No smoking! Smoking drastically decreases the chance of a solid fusion. E. Do not take any anti-inflammatory medications (Indocin, Advil, Motrin, Aspirin, Naprosyn, etc.) as these may inhibit the chance of a solid fusion. Tylenol is okay to take for pain. MANAGING PAIN AFTER SPINAL SURGERY 1. Narcotic medication is intended for short-term use and will be provided for surgical pain. Surgical pain usually lasts for a period of 4-6 weeks. Narcotic medication includes Percocet, Vicodin, Darvocet, Tylenol #3 or Lortab. 2. Longer-term pain is more appropriately treated with non-narcotic medication such as Tylenol ES. 3. Muscle spasm is not appropriately treated with narcotics. Muscle relaxers such as Soma, Flexeril or Skelaxin can be used along with Tylenol ES. 4. Remember that we all live with some "aches and pains". This is not unusual or uncommon after an injury or as we get older. a. Back pain is expected and may include muscle spasms for 4 to 6 weeks after surgery. The pain should gradually improve. If the pain worsens for no apparent reason, please contact the office. b. Intermittent leg pain may also be experienced and should not be concerned about unless it worsens for no apparent reason. If so, please contact the office. 5. We will provide appropriate medication within the normal guidelines of their prescribed use. We will also be very cautious and aware of potential abuse and extended duration of patients' medication needs. a. Pain medications are for your comfort and to assist with sleep and rest so that the tissue can heal. They are not provided in order to return to normal activity and should not be used through the day. To do so or worsening pain at night can result from ongoing tissue damage and development of tolerance to the prescribed medicine. 6. Please allow 2-3 days to process refills. Prescriptions will not be mailed but must be picked up at the office. FOLLOW UP VISIT: Keep your scheduled follow-up appointment. Any questions, please call the office at . Current Hospital Diet Patient's current hospital diet: Diabetes Type 2 Diet Discharge Diet Recommended Diet: Regular Diet Procedures Procedures Performed: #1 lumbar decompression medial facetectomy foraminotomies L3 4 L4 5. #2 posterior spinal fusion L4 5. #3 placement posterior inch rotation L4 5. #4 interbody fusion L4 5. #5 placement peek cage 12 x 22 mm at L4 5. #6 placement of local harvested morcellized autograft posterior lateral gutters. #7 placement of ostial amp in the interbody space and posterior lateral gutters. Pending Studies Studies pending at discharge: no Medical Emergencies . Who to Call and When: Medical Emergencies: If at any time you feel your situation is an emergency, please call 911 immediately. . Non-Emergent Contact Non-Emergency issues call your: Primary Care Provider . "Provider Documentation" section prepared by Glenn Sauer. . VTE Core Measure Inpt VTE Proph given/why not?: Amy Jay, [facility]
[2017-02-13] MEDS ORDERED: INSULIN GLARGINE SOLOSTAR 100 UNITS/ML 3 ML PEN SC ONE (16:00)
[2017-02-13] MEDS: INSULIN ASPART 100 UNITS/ML 3 ML PEN SC SCH ×2 (17:15→20:51)
[2017-02-13] MEDS: CLINDAMYCIN IV 600 MG in DEXTROSE 5% 50ML 50 ML IV SCH (18:41)
[2017-02-13] MEDS: DEXAMETHASONE INJ 6 MG in SYRINGE 0 ML IV SCH (18:43)
[2017-02-13] MEDS: DICYCLOMINE HCL 20 MG TAB PO SCH (18:43)
[2017-02-13] MEDS ORDERED: COUGH DROP (SUGAR FREE) LOZ 24 LOZ/1 BOX PO PRN (19:45)
[2017-02-13] MEDS ORDERED: NURSING DECISION MEDICATION ORDER SCH (19:45)
[2017-02-13] MEDS: DULOXETINE HCL 60 MG CAP PO SCH (20:46)
[2017-02-13] MEDS: ATORVASTATIN 40 MG TAB PO SCH (20:46)
[2017-02-13] MEDS: DOCUSATE SODIUM/SENNA 50/8.6MG TAB PO SCH (20:47)
[2017-02-13] MEDS: FAMOTIDINE 20 MG TAB PO SCH (20:47)
[2017-02-13] MEDS ORDERED: PANTOprazole SOD 40 MG TAB PO SCH (21:00)
[2017-02-14] MEDS: INSULIN ASPART 100 UNITS/ML 3 ML PEN SC SCH ×6 (00:39→21:00)
[2017-02-14] MEDS: SODIUM CHLORIDE 0.9% 1000ML 1,000 ML IV SCH (00:41)
[2017-02-14] MEDS: CLINDAMYCIN IV 600 MG in DEXTROSE 5% 50ML 50 ML IV SCH (02:12)
[2017-02-14] MEDS: DEXAMETHASONE INJ 6 MG in SYRINGE 0 ML IV SCH ×2 (02:12→09:15)
[2017-02-14] MEDS ORDERED: COUGH DROP (SUGAR FREE) LOZ 24 LOZ/1 BOX PO PRN (02:30)
[2017-02-14 03:36] VITALS: BP 138/77; PULSE 77; TEMP 37; O2SAT 94
[2017-02-14] MEDS ORDERED: HYDROmorphone INJ 0.5 MG/0.5 ML SYR IV PRN (06:00)
[2017-02-14] MEDS ORDERED: DC PCA SCH (06:00)
[2017-02-14] MEDS ORDERED: HYDROmorphone INJ 1 MG/ML SYR IV PRN (06:00)
[2017-02-14 06:10] LABS: COMPLETE YES; IG% 0.3 %; LYMPH % 5.7 %; LYMPH ABS # 0.68 K/uL (1.2-3.4); MEAN CELL VOLUME 87.1 fL (80-100); MEAN CORPUSCULAR HEMOGLOBIN 28.6 pg (25-34); MEAN CORPUSCULAR HGB CONC 32.9 g/dl (32-36); MEAN PLATELET VOLUME 9.3 fL (7.4-10.4); MONO % 3.9 %; NEUT % 90.1 %; PLATELET COUNT 206 K/uL (130-400); RED BLOOD COUNT 4.02 M/uL (4.2-5.4); WHITE BLOOD COUNT 11.98 K/uL (4.8-10.8)
[2017-02-14] MEDS ORDERED: NURSING DECISION MEDICATION ORDER SCH (06:30)
[2017-02-14 06:37] LABS: CALCIUM 8.4 mg/dl (8.5-10.1); CREATININE 0.89 mg/dl (0.60-1.20); POTASSIUM 3.7 mmol/L (3.5-5.1)
[2017-02-14 06:56] LABS: ESTIMATED AVERAGE GLUCOSE 134 mg/dl; HA1C FLAG Normal (Normal)
[2017-02-14] MEDS: OXYCODONE HCL IR 5 MG TAB (IMMEDIATE RELEASE) PO PRN ×2 (07:22→11:11)
--- NOTE | 2017-02-14 07:52 | Anesthesiology Progress Note ---
Anesthesia Post Op Note Date & Time Feb 14, 2017 at 07:51 Vital Signs Vital Signs Past 12 Hours Date Time Temp Pulse Resp B/P (MAP) Pulse Ox O2 Delivery O2 Flow Rate FiO2 02/14/17 03:36 37.0 77 18 138/77 (97) 94 Nasal Cannula 2.0 02/14/17 00:40 Room Air 02/13/17 23:08 36.9 87 18 116/66 (83) 93 Room Air Notes Mental Status: alert / awake / arousable, participated in evaluation Pt Amnestic to Procedure: Yes Nausea / Vomiting: adequately controlled Pain: adequately controlled Airway Patency, RR, SpO2: stable & adequate BP & HR: stable & adequate Hydration State: stable & adequate Anesthetic Complications: no major complications apparent
[2017-02-14 08:00] VITALS: BP 131/84; PULSE 81; TEMP 37; O2SAT 97
[2017-02-14] MEDS: PANTOprazole SOD 40 MG TAB PO SCH ×2 (09:11→17:23)
[2017-02-14] MEDS: TRAMADOL HCL 50 MG TAB PO PRN (09:11)
[2017-02-14] MEDS: CHLORTHALIDONE 25 MG TAB PO SCH (09:12)
[2017-02-14] MEDS: VALSARTAN 80 MG TAB PO SCH (09:12)
[2017-02-14] MEDS: DICYCLOMINE HCL 20 MG TAB PO SCH ×3 (09:13→17:24)
[2017-02-14] MEDS: INSULIN GLARGINE SOLOSTAR 100 UNITS/ML 3 ML PEN SC SCH ×2 (09:21→21:00)
--- NOTE | 2017-02-14 10:21 | Progress Note ---
Progress Note Date of Service Feb 14, 2017. Progress Note Back pain is controlled still complaining of leg pain. Vital signs are stable. SAUL drain 80 mL last shift. On exam she is good strength testing appears comfortable. Assessment status post lumbar depression fusion replant this time we'll initiate physical therapy today anticipate transfer to rehabilitation the next day or so.
[2017-02-14 11:25] VITALS: BP 124/72; PULSE 80; TEMP 36.9; O2SAT 96
[2017-02-14 14:56] VITALS: BP 144/78; PULSE 78; TEMP 36.9; O2SAT 95
--- NOTE | 2017-02-14 20:11 | Progress Note ---
Medicine Progress Note Date & Time of Visit: Feb 14, 2017 at 20:03. Subjective Pt was seen and examined Lying in bed with no distress denies any chest pain. palpitation and SOB Objective Last 8 Hrs Date Time Temp Pulse Resp B/P (MAP) Pulse Ox O2 Delivery O2 Flow Rate FiO2 02/14/17 15:45 Room Air 02/14/17 14:56 36.9 78 18 144/78 (100) 95 Room Air Physical Exam: General- No acute distress Head- atraumatic Eyes- PERRL, EOMI ENT- oropharynx clear Neck- supple, no JVD Lungs- clear to auscultation Heart- regular rhythm Abdomen- normal bowel sounds Extremities- no calf tenderness Laboratory Results: Last 24 Hours Test 02/13/17 20:34 02/14/17 00:19 02/14/17 03:57 02/14/17 05:35 Bedside Glucose 154 mg/dl 132 mg/dl 144 mg/dl White Blood Count 11.98 K/uL Red Blood Count 4.02 M/uL Hemoglobin 11.5 g/dL Hematocrit 35.0 % Mean Corpuscular Volume 87.1 fL Mean Corpuscular Hemoglobin 28.6 pg Mean Corpuscular Hemoglobin Concent 32.9 g/dl Platelet Count 206 K/uL Mean Platelet Volume 9.3 fL Neutrophils (%) (Auto) 90.1 % Lymphocytes (%) (Auto) 5.7 % Monocytes (%) (Auto) 3.9 % Eosinophils (%) (Auto) 0.0 % Basophils (%) (Auto) 0.0 % Neutrophils # (Auto) 10.79 K/uL Lymphocytes # (Auto) 0.68 K/uL Monocytes # (Auto) 0.47 K/uL Eosinophils # (Auto) 0.00 K/uL Basophils # (Auto) 0.00 K/uL RDW Standard Deviation 44.1 fL RDW Coefficient of Variation 13.8 % Immature Granulocyte % (Auto) 0.3 % Immature Granulocyte # (Auto) 0.04 K/uL Sodium Level 137 mmol/L Potassium Level 3.7 mmol/L Chloride Level 102 mmol/L Carbon Dioxide Level 26 mmol/L Anion Gap 9.0 mmol/L Blood Urea Nitrogen 16 mg/dl Creatinine 0.89 mg/dl Est Creatinine Clear Calc Drug Dose 57.0 ml/min Estimated GFR () 74.0 Estimated GFR (Non- 63.8 BUN/Creatinine Ratio 18.0 Random Glucose 139 mg/dl Estimated Average Glucose 134 mg/dl Hemoglobin A1c 6.3 % Calcium Level 8.4 mg/dl Test 02/14/17 08:20 02/14/17 12:05 02/14/17 16:48 Bedside Glucose 155 mg/dl 97 mg/dl 141 mg/dl Assessment & Plan Back Pain s/p day 1 #1 lumbar decompression medial facetectomy foraminotomies L3 4 L4 5. #2 posterior spinal fusion L4 5. #3 placement posterior inch rotation L4 5. #4 interbody fusion L4 5. #5 placement peek cage 12 x 22 mm at L4 5. #6 placement of local harvested morcellized autograft posterior lateral gutters. #7 placement of ostial amp in the interbody space and posterior lateral gutters) Continue pain control PT/OT Incentive spirometry Fibromyalgia - stable Psoriatic arthritis - Humira on hold Rectocele / Irritable bowel syndrome monitor for bowel movements, constipation, or diarrhea, or for blood in stool Overactive bladder stable Hyperlipidemia - continue atorvastatin Essential HTN continue valsartan, chlorthalidone Stable DVT prophylaxis: as per ortho Disposition: discharge as per orthopedics Current Inpatient Medications: Current Inpatient Medications Medications (Trade) Dose Ordered Sig/Praveen Route Start Time Stop Time Status Last Admin Dose Admin Promethazine HCl 12.5 mg/Sodium Chloride 50.5 ml @ 202 mls/hr Q6H PRN IV 02/13/17 12:15 03/15/17 12:14 Ondansetron HCl (Zofran Inj) 4 mg Q6H PRN IV 02/13/17 12:15 03/15/17 12:14 Metoclopramide HCl (Reglan Inj) 10 mg Q6H PRN IV 02/13/17 12:15 03/15/17 12:14 Lorazepam (Ativan Tab) 0.5 mg Q8H PRN PO 02/13/17 12:15 03/15/17 12:14 Lorazepam 0.5 mg/ Syringe 1 ml @ 1 mls/min Q8H PRN IV 02/13/17 12:15 03/15/17 12:14 Pneumococcal Polysaccharide Vaccine 1 ea PRN PRN N/A 02/13/17 12:15 03/15/17 12:14 Influenza Virus Vacc Triv Types A&B 1 ea PRN PRN N/A 02/13/17 12:15 03/15/17 12:14 Polyethylene (Miralax Powder Packet) 17 gm Q6 PO 02/15/17 06:00 03/17/17 05:59 Bisacodyl (Dulcolax Supp) 10 mg DAILY PRN PA 02/13/17 12:15 03/15/17 12:14 Magnesium Hydroxide (Milk Of Magnesia Susp) 30 ml DAILY PRN PO 02/13/17 12:15 03/15/17 12:14 Hydromorphone HCl (Dilaudid Inj) 0.5 mg Q3H PRN IV 02/14/17 06:00 02/28/17 05:59 Oxycodone HCl (Roxicodone Immediate Rel Tab) 5-10mg prn moderate to sev... Q4H PRN PO 02/14/17 06:00 02/28/17 05:59 02/14/17 11:11 10 MG Acetaminophen (Tylenol Tab) 1,000 mg Q8H PRN PO 02/13/17 12:15 03/15/17 12:14 Acetaminophen 100 ml @ 400 mls/hr Q8H PRN IV 02/13/17 12:15 03/15/17 12:14 Naloxone HCl (Narcan Inj) 0.1 mg Q5M PRN IV 02/13/17 12:15 03/15/17 12:14 Senna/Docusate Sodium (Senokot S Tab) 2 tab HS PO 02/13/17 21:00 03/15/17 20:59 02/13/17 20:47 2 TAB Sodium Biphosphate/ Sodium Phosphate (Fleet Enema) 132 ml ONE PRN PA 02/13/17 12:15 03/15/17 12:14 Hydroxyzine HCl (Vistaril Tab) 25 mg Q8H PRN PO 02/13/17 12:15 03/15/17 12:14 Al Hydroxide/Mg Hydroxide (Maalox Susp) 30 ml Q6H PRN PO 02/13/17 12:15 03/15/17 12:14 Diphenhydramine HCl (Benadryl Cap) 25 mg Q6H PRN PO 02/13/17 12:15 03/15/17 12:14 02/14/17 02:12 25 MG Atorvastatin Calcium (Lipitor Tab) 40 mg QPM PO 02/13/17 21:00 03/15/17 20:59 02/13/17 20:46 40 MG Chlorthalidone (Hygroton Tab) 25 mg QAM PO 02/14/17 09:00 03/16/17 08:59 02/14/17 09:12 25 MG Dicyclomine HCl (Bentyl Tab) 20 mg TIDM PO 02/13/17 17:45 03/15/17 17:59 02/14/17 17:24 20 MG Duloxetine HCl (Cymbalta Cap) 60 mg HS PO 02/13/17 21:00 03/15/17 20:59 02/13/17 20:46 60 MG Famotidine (Pepcid Tab) 40 mg HS PO 02/13/17 21:00 03/15/17 20:59 02/13/17 20:47 40 MG Tramadol HCl (Ultram Tab) 50 mg Q8H PRN PO 02/13/17 12:15 03/15/17 12:14 02/14/17 09:11 50 MG Valsartan (Diovan Tab) 80 mg QAM PO 02/14/17 09:00 03/16/17 08:59 02/14/17 09:12 80 MG Miscellaneous Information (Consult Glycemic Management Pharmacy) 1 ea UD PRN N/A 02/13/17 13:48 03/15/17 13:47 Insulin Glargine (Lantus Solostar Pen) SEE PROTOCOL TEXT Q12 SC 02/14/17 09:00 03/16/17 08:59 02/14/17 09:21 13 UNITS Insulin Aspart (novoLOG ASPART) SLIDING SCALE If C... ACHS SC 02/13/17 17:15 03/15/17 17:14 02/14/17 18:22 3 UNITS Glucose (Glucose 40% Gel) 15-30 GRAMS 15 GRAMS... UD PRN PO 02/13/17 14:00 03/15/17 13:59 Glucose (Glucose Chew Tab) 4-8 Tablets 4 Tabl... UD PRN PO 02/13/17 14:00 03/15/17 13:59 Dextrose (Dextrose 50% 50ML Syringe) 25-50ML OF 50% DW IV FOR... UD PRN IV 02/13/17 14:00 03/15/17 13:59 Glucagon (Glucagon Inj) 1 mg UD PRN SQ 02/13/17 14:00 03/15/17 13:59 Hydromorphone HCl (Dilaudid Inj) 1 mg Q3H PRN IV 02/14/17 06:00 02/28/17 05:59 Menthol (Nice Sara) 1 sara Q1H PRN PO 02/13/17 19:45 03/15/17 19:44 Pantoprazole Sodium (Protonix Tab) 40 mg BIDM PO 02/14/17 08:30 03/15/17 20:59 02/14/17 17:23 40 MG Menthol (Nice Sara) 1 sara PRN PRN PO 02/14/17 02:30 03/16/17 02:29 02/14/17 02:39 1 SARA
[2017-02-14] MEDS: ATORVASTATIN 40 MG TAB PO SCH (21:28)
[2017-02-14] MEDS: DOCUSATE SODIUM/SENNA 50/8.6MG TAB PO SCH (21:29)
[2017-02-14] MEDS: FAMOTIDINE 20 MG TAB PO SCH (21:29)
[2017-02-14] MEDS: DULOXETINE HCL 60 MG CAP PO SCH (22:14)
[2017-02-14 23:20] VITALS: BP 178/73; PULSE 70; TEMP 36.7; O2SAT 95
[2017-02-14 23:32] VITALS: BP 168/78
[2017-02-15] MEDS: TRAMADOL HCL 50 MG TAB PO PRN ×3 (01:24→17:37)
[2017-02-15] MEDS: POLYETHYLENE (MIRALAX) 17 GM PACK PO SCH ×4 (06:01→23:40)
[2017-02-15 06:58] LABS: HEMATOCRIT 38.2 % (37-47); MEAN CELL VOLUME 88.6 fL (80-100); MEAN CORPUSCULAR HEMOGLOBIN 28.3 pg (25-34); MEAN CORPUSCULAR HGB CONC 31.9 g/dl (32-36); MEAN PLATELET VOLUME 9.7 fL (7.4-10.4); PLATELET COUNT 234 K/uL (130-400); RED BLOOD COUNT 4.31 M/uL (4.2-5.4); WHITE BLOOD COUNT 13.25 K/uL (4.8-10.8)
[2017-02-15 07:05] VITALS: BP 183/92; PULSE 81; TEMP 36.7; O2SAT 95
[2017-02-15] MEDS: ACETAMINOPHEN 500 MG TAB PO PRN ×2 (07:38→17:15)
[2017-02-15] MEDS: INSULIN ASPART 100 UNITS/ML 3 ML PEN SC SCH ×4 (08:00→20:56)
[2017-02-15] MEDS: VALSARTAN 80 MG TAB PO SCH (08:02)
[2017-02-15] MEDS: DICYCLOMINE HCL 20 MG TAB PO SCH ×3 (08:02→17:16)
[2017-02-15] MEDS: PANTOprazole SOD 40 MG TAB PO SCH ×2 (08:02→17:16)
[2017-02-15] MEDS: CHLORTHALIDONE 25 MG TAB PO SCH (08:03)
[2017-02-15] MEDS ORDERED: METFORMIN HCL 500 MG TABCR PO ONE (09:15)
--- NOTE | 2017-02-15 10:18 | Orthopedic Progress Note ---
Orthopedic Progress Note Date of Service Feb 15, 2017. Subjective Post OP Day: 2 Reports: feeling well Additional Notes: Care of her agapito doing well. She has complaints of back pain but this is controlled. Denies radicular leg pain. SAUL drain output left shift was 50 mL. Yesterday in physical therapy she's walking roughly 100 feet. Lab values stable. He is passing flatus but no bowel movement yet. Objective calves soft nontender, N/V intact, capillary refill less than 2 sec., dressing C /D/I, A&O x3, toes mobile Lumbar dressing is clean dry and intact Lower extremities neurovascular intact bilaterally. Calves are soft and nontender bilaterally. Maik hose intact bilaterally Date Time Temp Pulse Resp B/P (MAP) Pulse Ox O2 Delivery O2 Flow Rate FiO2 02/15/17 07:20 Room Air 02/15/17 07:05 36.7 81 16 183/92 (122) 95 Room Air 02/14/17 23:32 168/78 (108) 02/14/17 23:20 36.7 70 18 178/73 (108) 95 Room Air 02/14/17 23:15 Room Air 02/14/17 15:45 Room Air 02/14/17 14:56 36.9 78 18 144/78 (100) 95 Room Air 02/14/17 11:25 36.9 80 16 124/72 (89) 96 Room Air Laboratory Results 24 Hours: Test 02/15/17 06:14 Hematocrit 38.2 % Hemoglobin 12.2 g/dL Assessment & Plan Assessment: Postoperative day 2 lumbar decompression fusion Plan: We will maintain SAUL drain and dressing today. Continue pain control. Continue physical therapy. Patient has been accepted to [facility]. We will anticipate anticipate discharge to this facility tomorrow. We'll also work on aggressive bowel regimen today. Inhouse Planning DVT Prophylaxis: ROSY Bellos
[2017-02-15] MEDS ORDERED: SOD PHOSPHATE/SOD BIPHOSPHATE ENEMA 132 ML BTL PR PRN (10:30)
[2017-02-15 11:59] VITALS: BP 138/85; PULSE 73
[2017-02-15] MEDS: OXYCODONE HCL IR 5 MG TAB (IMMEDIATE RELEASE) PO PRN ×2 (13:36→20:54)
[2017-02-15 15:27] VITALS: Ht 165.1 cm; Wt 77.0 kg
[2017-02-15 15:43] VITALS: BP 137/79; PULSE 77; TEMP 37; O2SAT 95
--- NOTE | 2017-02-15 17:43 | Progress Note ---
Medicine Progress Note Date & Time of Visit: Feb 15, 2017 at 17:41. Subjective Pt was seen and examined Lying in bed with no distress Pt said that she feels fine denies any chest pain, palpitation, dizziness and SOB Objective Last 8 Hrs Date Time Temp Pulse Resp B/P (MAP) Pulse Ox O2 Delivery O2 Flow Rate FiO2 02/15/17 15:43 37.0 77 16 137/79 (98) 95 Room Air 02/15/17 11:59 73 138/85 (102) Physical Exam: General- No acute distress Head- atraumatic Eyes- PERRL, EOMI ENT- oropharynx clear Neck- supple, no JVD Lungs- clear to auscultation Heart- regular rhythm Abdomen- normal bowel sounds Extremities- no calf tenderness Laboratory Results: Last 24 Hours Test 02/14/17 20:37 02/15/17 06:14 02/15/17 07:59 02/15/17 12:05 Bedside Glucose 96 mg/dl 124 mg/dl 74 mg/dl White Blood Count 13.25 K/uL Red Blood Count 4.31 M/uL Hemoglobin 12.2 g/dL Hematocrit 38.2 % Mean Corpuscular Volume 88.6 fL Mean Corpuscular Hemoglobin 28.3 pg Mean Corpuscular Hemoglobin Concent 31.9 g/dl RDW Standard Deviation 45.8 fL RDW Coefficient of Variation 14.0 % Platelet Count 234 K/uL Mean Platelet Volume 9.7 fL Assessment & Plan Back Pain s/p day 2 #1 lumbar decompression medial facetectomy foraminotomies L3 4 L4 5. #2 posterior spinal fusion L4 5. #3 placement posterior inch rotation L4 5. #4 interbody fusion L4 5. #5 placement peek cage 12 x 22 mm at L4 5. #6 placement of local harvested morcellized autograft posterior lateral gutters. #7 placement of ostial amp in the interbody space and posterior lateral gutters) Continue pain control PT/OT Incentive spirometry Hgb stable Fibromyalgia - stable Psoriatic arthritis - Humira on hold Rectocele / Irritable bowel syndrome monitor for bowel movements, constipation, or diarrhea, or for blood in stool Overactive bladder stable Hyperlipidemia - continue atorvastatin Essential HTN continue valsartan, chlorthalidone Stable DVT prophylaxis: as per ortho Disposition: discharge as per orthopedics Current Inpatient Medications: Current Inpatient Medications Medications (Trade) Dose Ordered Sig/Praveen Route Start Time Stop Time Status Last Admin Dose Admin Promethazine HCl 12.5 mg/Sodium Chloride 50.5 ml @ 202 mls/hr Q6H PRN IV 02/13/17 12:15 03/15/17 12:14 Ondansetron HCl (Zofran Inj) 4 mg Q6H PRN IV 02/13/17 12:15 03/15/17 12:14 Metoclopramide HCl (Reglan Inj) 10 mg Q6H PRN IV 02/13/17 12:15 03/15/17 12:14 Lorazepam (Ativan Tab) 0.5 mg Q8H PRN PO 02/13/17 12:15 03/15/17 12:14 Lorazepam 0.5 mg/ Syringe 1 ml @ 1 mls/min Q8H PRN IV 02/13/17 12:15 03/15/17 12:14 Pneumococcal Polysaccharide Vaccine 1 ea PRN PRN N/A 02/13/17 12:15 03/15/17 12:14 Influenza Virus Vacc Triv Types A&B 1 ea PRN PRN N/A 02/13/17 12:15 03/15/17 12:14 Polyethylene (Miralax Powder Packet) 17 gm Q6 PO 02/15/17 06:00 03/17/17 05:59 02/15/17 17:18 17 GM Bisacodyl (Dulcolax Supp) 10 mg DAILY PRN ND 02/13/17 12:15 03/15/17 12:14 Magnesium Hydroxide (Milk Of Magnesia Susp) 30 ml DAILY PRN PO 02/13/17 12:15 03/15/17 12:14 Hydromorphone HCl (Dilaudid Inj) 0.5 mg Q3H PRN IV 02/14/17 06:00 02/28/17 05:59 Oxycodone HCl (Roxicodone Immediate Rel Tab) 5-10mg prn moderate to sev... Q4H PRN PO 02/14/17 06:00 02/28/17 05:59 02/15/17 13:36 5 MG Acetaminophen (Tylenol Tab) 1,000 mg Q8H PRN PO 02/13/17 12:15 03/15/17 12:14 02/15/17 17:15 1,000 MG Acetaminophen 100 ml @ 400 mls/hr Q8H PRN IV 02/13/17 12:15 03/15/17 12:14 Naloxone HCl (Narcan Inj) 0.1 mg Q5M PRN IV 02/13/17 12:15 03/15/17 12:14 Senna/Docusate Sodium (Senokot S Tab) 2 tab HS PO 02/13/17 21:00 03/15/17 20:59 02/14/17 21:29 2 TAB Sodium Biphosphate/ Sodium Phosphate (Fleet Enema) 132 ml ONE PRN ND 02/13/17 12:15 03/15/17 12:14 Hydroxyzine HCl (Vistaril Tab) 25 mg Q8H PRN PO 02/13/17 12:15 03/15/17 12:14 Al Hydroxide/Mg Hydroxide (Maalox Susp) 30 ml Q6H PRN PO 02/13/17 12:15 03/15/17 12:14 Diphenhydramine HCl (Benadryl Cap) 25 mg Q6H PRN PO 02/13/17 12:15 03/15/17 12:14 02/15/17 01:24 25 MG Atorvastatin Calcium (Lipitor Tab) 40 mg QPM PO 02/13/17 21:00 03/15/17 20:59 02/14/17 21:28 40 MG Chlorthalidone (Hygroton Tab) 25 mg QAM PO 02/14/17 09:00 03/16/17 08:59 02/15/17 08:03 25 MG Dicyclomine HCl (Bentyl Tab) 20 mg TIDM PO 02/13/17 17:45 03/15/17 17:59 02/15/17 17:16 20 MG Duloxetine HCl (Cymbalta Cap) 60 mg HS PO 02/13/17 21:00 03/15/17 20:59 02/14/17 22:14 60 MG Famotidine (Pepcid Tab) 40 mg HS PO 02/13/17 21:00 03/15/17 20:59 02/14/17 21:29 40 MG Tramadol HCl (Ultram Tab) 50 mg Q8H PRN PO 02/13/17 12:15 03/15/17 12:14 02/15/17 17:37 50 MG Valsartan (Diovan Tab) 80 mg QAM PO 02/14/17 09:00 03/16/17 08:59 02/15/17 08:02 80 MG Miscellaneous Information (Consult Glycemic Management Pharmacy) 1 ea UD PRN N/A 02/13/17 13:48 03/15/17 13:47 Insulin Aspart (novoLOG ASPART) SLIDING SCALE If C... ACHS SC 02/13/17 17:15 03/15/17 17:14 02/14/17 18:22 3 UNITS Glucose (Glucose 40% Gel) 15-30 GRAMS 15 GRAMS... UD PRN PO 02/13/17 14:00 03/15/17 13:59 Glucose (Glucose Chew Tab) 4-8 Tablets 4 Tabl... UD PRN PO 02/13/17 14:00 03/15/17 13:59 Dextrose (Dextrose 50% 50ML Syringe) 25-50ML OF 50% DW IV FOR... UD PRN IV 02/13/17 14:00 03/15/17 13:59 Glucagon (Glucagon Inj) 1 mg UD PRN SQ 02/13/17 14:00 03/15/17 13:59 Hydromorphone HCl (Dilaudid Inj) 1 mg Q3H PRN IV 02/14/17 06:00 02/28/17 05:59 Menthol (Nice Sara) 1 sara Q1H PRN PO 02/13/17 19:45 03/15/17 19:44 Pantoprazole Sodium (Protonix Tab) 40 mg BIDM PO 02/14/17 08:30 03/15/17 20:59 02/15/17 17:16 40 MG Menthol (Nice Sara) 1 sara PRN PRN PO 02/14/17 02:30 03/16/17 02:29 02/14/17 02:39 1 SARA Metformin HCl (Glucophage Extended Rel Tab) 500 mg QDB PO 02/16/17 08:30 03/18/17 08:29 Sodium Biphosphate/ Sodium Phosphate (Fleet Enema) 132 ml DAILY PRN ND 02/15/17 10:30 03/17/17 10:29
[2017-02-15] MEDS: DULOXETINE HCL 60 MG CAP PO SCH (20:54)
[2017-02-15] MEDS: ATORVASTATIN 40 MG TAB PO SCH (20:54)
[2017-02-15] MEDS: DOCUSATE SODIUM/SENNA 50/8.6MG TAB PO SCH (20:54)
[2017-02-15] MEDS: FAMOTIDINE 20 MG TAB PO SCH (20:55)
[2017-02-15 23:04] VITALS: BP 135/84; PULSE 77; TEMP 36.8; O2SAT 94
[2017-02-16] MEDS: POLYETHYLENE (MIRALAX) 17 GM PACK PO SCH ×2 (05:27→13:47)
[2017-02-16 06:30] VITALS: BP 161/86; PULSE 75; TEMP 36.7; O2SAT 96
[2017-02-16] MEDS: TRAMADOL HCL 50 MG TAB PO PRN (06:43)
[2017-02-16] MEDS: ACETAMINOPHEN 500 MG TAB PO PRN (06:43)
[2017-02-16] MEDS: PANTOprazole SOD 40 MG TAB PO SCH (06:44)
[2017-02-16] MEDS: DICYCLOMINE HCL 20 MG TAB PO SCH ×2 (06:44→13:49)
[2017-02-16] MEDS: INSULIN ASPART 100 UNITS/ML 3 ML PEN SC SCH ×2 (08:00→13:48)
[2017-02-16] MEDS: VALSARTAN 80 MG TAB PO SCH (08:10)
[2017-02-16] MEDS: CHLORTHALIDONE 25 MG TAB PO SCH (08:11)
[2017-02-16] MEDS ORDERED: METFORMIN HCL 500 MG TABCR PO SCH (08:30)
--- NOTE | 2017-02-16 13:49 | Discharge Summary ---
Orthopedic Discharge Summary Admission Date/Reason Feb 13, 2017 at 10:00 Lumbar Spinal Stenosis. Discharge Date/Disposition Feb 16, 2017 [facility] facility Diagnosis Principal Diagnosis: Lumbar spinal stenosis Admission Physical Exam As per Admitting History & Physical. Hospital Course Patient underwent lumbar decompression and fusion tolerated this well as taken to the orthopedic floor postoperatively. Postoperative day 1 she was up and amatory progressed nicely through postop day #2 socially postop 3 was discharged to nursing facility discharge orders and instructions found the chart for further review. Discharge Instructions Please refer to the electronic Patient Visit Report (Discharge Instructions) for additional information.
[2017-02-16] MEDS: OXYCODONE HCL IR 5 MG TAB (IMMEDIATE RELEASE) PO PRN (13:58)
[2017-02-16 14:42] VITALS: BP 161/86; PULSE 75; TEMP 36.7; O2SAT 96
[2017-02-16 15:11] VITALS: BP 149/83; PULSE 93; TEMP 36.6; O2SAT 93
== END 2017-02-16 15:33 | DRG 460 ==
LOC: C.ACU 07:56 → C.3E 10:00 → ENRESERV 13:29
PROVIDERS: ADMIT Orthopaedic Surgery Orthopaedic Surgery of the Spine; ATTEND Orthopaedic Surgery Orthopaedic Surgery of the Spine
PROC: 0ST20ZZ Resection of Lumbar Vertebral Disc, Open Approach (ICD-10-PCS; principal; 2017-02-13 10:15)
PROC: 0SG0071 Fusion of Lumbar Vertebral Joint with Autologous Tissue Substitute, Posterior Approach, Posterior Column, Open Approach (ICD-10-PCS; principal; 2017-02-13 10:15)
PROC: 0SG00AJ Fusion of Lumbar Vertebral Joint with Interbody Fusion Device, Posterior Approach, Anterior Column, Open Approach (ICD-10-PCS; principal; 2017-02-13 10:15)
DX: M48.06 Spinal stenosis, lumbar region (principal); M43.16 Spondylolisthesis, lumbar region; L40.50 Arthropathic psoriasis, unspecified; M79.7 Fibromyalgia; R73.03 Prediabetes; K58.9 Irritable bowel syndrome, unspecified; M81.0 Age-related osteoporosis without current pathological fracture; K21.9 Gastro-esophageal reflux disease without esophagitis; E78.5 Hyperlipidemia, unspecified; I10 Essential (primary) hypertension; J30.9 Allergic rhinitis, unspecified; Z79.899 Other long term (current) drug therapy